=== PATIENT | male | born 1985 ===

== ENCOUNTER 2021-06-15 00:18 | Emergency (ER) | payer BC, SELFPAY ==
--- NOTE | 2021-06-15 01:59 | EDPHYS ---
Physician Documentation [facility] Name: Faisal To Age: 36 yrs Sex: Male : 1985 Arrival Date: 06/15/2021 Time: 00:20 Bed 12 Private MD: Carmen Mallory H ED Physician Zach Neil HPI: 06/15 00:51 This 36 yrs old Male presents to ER via Ambulatory with complaints of Arm Injury. jmm 00:51 The patient or guardian complains of injury, pain. Onset: The symptoms/episode jmm began/occurred acutely, just prior to arrival. Modifying factors: The symptoms are alleviated by nothing. the symptoms are aggravated by nothing. Associated signs and symptoms: Pertinent positives: pain, swelling. The patient has not experienced similar symptoms in the past. Patient states falling and landing on an outstretched arm. Denies head injury. . Historical: - Allergies: 00:44 No Known Allergies; vc1 - Home Meds: 00:44 diazepam 5 mg Oral tab [Active]; Vitamin C Oral orville [Active]; Vitamin D Oral [Active]; vc1 - PMHx: 00:44 Anxiety; vc1 - PSHx: 00:44 Cholecystectomy; vc1 - Immunization history:: Adult Immunizations up to date, Client reports having NOT received the Covid vaccine. - Social history:: Smoking status: Reported history of juuling and/or vaping. Patient uses alcohol, on a daily basis. ROS: 00:51 Constitutional: Negative for fever, chills, and weight loss, Cardiovascular: Negative jmm for chest pain, palpitations, and edema, Respiratory: Negative for shortness of breath, cough, wheezing, and pleuritic chest pain. 00:51 MS/extremity: Positive for injury or acute deformity, pain. 00:51 All other systems are negative. Exam: 00:51 Head/Face: atraumatic. Eyes: EOMI, no conjunctival erythema appreciated ENT: Moist jmm Mucus Membranes Neck: Trachea midline, Supple Chest/axilla: Normal chest wall appearance and motion. Cardiovascular: Regular rate and rhythm. No edema appreciated Respiratory: Normal respirations, no respiratory distress appreciated Abdomen/GI: Non distended, soft Back: Normal ROM 00:51 Skin: General appearance color normal 00:51 Constitutional: The patient appears alert, awake, anxious, smells of alcohol. 00:51 Musculoskeletal/extremity: Ecchymosis noted to the left distal humeral region, swelling appreciated to the left hand, full range of motion is appreciated but it is tender. Full radial pulse appreciated, compartments are soft, neurovascular intact. 00:51 Skin: Appearance: Color: normal in color. 00:51 Neuro: Motor: is normal. 00:51 Psych: Behavior/mood is anxious, aggressive. Vital Signs: 00:39 BP 131 / 82; Pulse 111; Resp 20; Temp 99(TE); Pulse Ox 96% on R/A; Weight 107.05 kg; vc1 Height 5 ft. 8 in. (172.72 cm); Pain 10/10; 00:39 Body Mass Index 35.88 (107.05 kg, 172.72 cm) [facility] MDM: 01:41 Patient medically screened. [facility] 01:58 Data reviewed: vital signs, nurses notes. Counseling: I had a detailed discussion with [facility] the patient and/or guardian regarding: the historical points, exam findings, and any diagnostic results supporting the discharge/admit diagnosis, the need for outpatient follow up, to return to the emergency department if symptoms worsen or persist or if there are any questions or concerns that arise at home. 02:21 ED course: Patient left the ED prior to results of x-ray. Patient refused to stay in [facility] the ED. We were able to splint him in a left posterior splint with sling and I did give him information for orthopedic follow-up. Patient was escorted with the his [id number] was sober.. 06/15 00:50 Order name: XRAY Humerus LEFT [facility] 06/15 00:50 Order name: XRAY Wrist LEFT 2 view [facility] 06/15 01:41 Order name: Posterior Elbow Splint; Complete Time: 02:04 [facility] 06/15 01:41 Order name: Sling; Complete Time: 02:04 [facility] Administered Medications: No medications were administered Disposition: :58 Chart complete. [facility] 02:38 Co-signature as Attending Physician, Zach Neil MD. pkl Disposition Summary: 06/15/21 01:59 Discharge Ordered Location: Home [facility] Condition: Stable [facility] Diagnosis - Contusion of left upper arm [facility] - Contusion of left forearm [facility] Followup: [facility] - With: Feng Bowden MD - When: 2 - 3 days - Reason: Recheck today's complaints, Continuance of care, Re-evaluation by your physician Discharge Instructions: - Discharge Summary Sheet jmm - Contusion jmm - Elbow Sprain jm Forms: - Medication Reconciliation Form jmrenate - Thank You Letter nikita - Antibiotic Education cindym - Prescription Opioid Use nikita Signatures: Dispatcher [employer] EDMS Zach Neil MD MD pkl Mickail, Joel, PA PA jmm Calcote, Vanessa RN RN vc1 Corrections: (The following items were deleted from the chart) 00:46 00:44 Home Meds: Valium 5 mg Oral tab; vc1 vc1 01:37 00:51 Shoulder Left 2 View+RAD.RAD.BRZ ordered. EDME EDMS
--- NOTE | 2021-06-15 01:59 | ER ---
Nurse's Notes [facility] Name: Faisal To Age: 36 yrs Sex: Male : 1985 Arrival Date: 06/15/2021 Time: 00:20 Bed 12 Private MD: Carmen Mallory H Diagnosis: Contusion of left upper arm;Contusion of left forearm Presentation: 06/15 00:39 Chief complaint: Patient states: I cant move my fingers or my left arm, I think I fell vc1 and caught myself. Friend and/or Co-Worker states: He told me he fell and his elbow bent back. Coronavirus screen: Vaccine status: Patient reports being unvaccinated. Ebola Screen: No symptoms or risks identified at this time. Initial Sepsis Screen: Does the patient meet any 2 criteria? No. Patient's initial sepsis screen is negative. Does the patient have a suspected source of infection? No. Patient's initial sepsis screen is negative. Risk Assessment: Do you want to hurt yourself or someone else? Patient reports no desire to harm self or others. Onset of symptoms was June 15, 2021. 00:39 Method Of Arrival: Ambulatory vc1 00:39 Acuity: ROBERT 4 vc1 Triage Assessment: 00:44 General: Appears in no apparent distress. Behavior is calm, cooperative, appropriate vc1 for age. Pain: Complains of pain in left arm Pain does not radiate. Pain currently is 10 out of 10 on a pain scale. Musculoskeletal: Circulation, motion, and sensation intact. Range of motion: limited in left elbow and left wrist Swelling present in left arm. Injury Description: Bruise. Historical: - Allergies: 00:44 No Known Allergies; vc1 - Home Meds: 00:44 diazepam 5 mg Oral tab [Active]; Vitamin C Oral orville [Active]; Vitamin D Oral [Active]; vc1 - PMHx: 00:44 Anxiety; vc1 - PSHx: 00:44 Cholecystectomy; vc1 - Immunization history:: Adult Immunizations up to date, Client reports having NOT received the Covid vaccine. - Social history:: Smoking status: Reported history of juuling and/or vaping. Patient uses alcohol, on a daily basis. Screenin:47 Abuse screen: Denies threats or abuse. Denies injuries from another. Nutritional tw5 screening: No deficits noted. Tuberculosis screening: No symptoms or risk factors identified. 01:47 Fall Risk None identified. vc1 Assessment: 01:47 General: Behavior is agitated, anxious, " I AM JUST STANDING HERE, I AM NOT BOTHERING tw5 ANYONE, BUT I JUST WANT TO GO THE FUCK HOME." patient is observed pacing next his room. It was explained that he needed to stay in his room to protect the privacy of other patients. "YOU ARE TRYING TO LOCK ME IN HERE, WHY YOU TRYING TO LOCK ME IN HERE." It was further explained to the patient that there are no locks on the door and he is welcome to leave at any point, but nursing staff would like to splint the arm before he leaves if he would allow. General: Behavior is restless, uncooperative. Neuro:. Musculoskeletal: Swelling present in left bicep and left antecubital area. 01:56 General: Smells of alcohol. tw5 Vital Signs: 00:39 BP 131 / 82; Pulse 111; Resp 20; Temp 99(TE); Pulse Ox 96% on R/A; Weight 107.05 kg; vc1 Height 5 ft. 8 in. (172.72 cm); Pain 10/10; 00:39 Body Mass Index 35.88 (107.05 kg, 172.72 cm) vc1 ED Course: 00:20 Patient arrived in ED. es 00:21 Carmen Mallory DO is Private Physician. es 00:44 Triage completed. vc1 00:47 Arm band placed on right wrist. vc1 01:40 XRAY Humerus LEFT In Process Unspecified. EDMS 01:40 Jabier Montes PA is PHCP. jmm 01:40 Zach Neil MD is Attending Physician. jmm 01:40 XRAY Wrist LEFT 2 view In Process Unspecified. EDMS 01:47 Appears agitated. Appears angry. Pt. is pacing. tw5 01:56 Patient has correct armband on for positive identification. tw5 01:58 Feng Bowden MD is Referral Physician. jmm 02:04 No provider procedures requiring assistance completed. Patient did not have IV access vc1 during this emergency room visit. Orthoglass splint: posterior long arm splint applied to the Sling applied to left arm. Administered Medications: No medications were administered Outcome: 01:59 Discharge ordered by . nikita 02:04 Discharged to home ambulatory, with family. vc1 02:04 Condition: good 02:04 Discharge instructions given to patient, family, Instructed on discharge instructions, follow up and referral plans. sling usage 02:05 Patient left the ED. vc1 Signatures: Dispatcher [employer] EDJabier Rivera PA PA jmm Salyer, Edna es Wood, Tiffany tw5 Dilia Markham RN RN vc1 Corrections: (The following items were deleted from the chart) 00:46 00:44 Home Meds: Valium 5 mg Oral tab; vc1 vc1
[2021-06-15 02:18] VITALS: BP 131/82; TEMP 99; O2SAT 96
--- NOTE | 2021-06-15 16:29 | RAD REPORT ---
EXAM DESCRIPTION: XR Left Humerus, 2 Views CLINICAL HISTORY: Unable to move;Swelling TECHNIQUE: Frontal and lateral views of the left humerus. COMPARISON: No relevant prior studies available. FINDINGS: Bones/joints: No acute fracture. Mild degenerative changes at the acromioclavicular lyndsay culation. No dislocation. Soft tissues: Unremarkable. * A single impression for all exams can be found at the end of this report EXAM DESCRIPTION: XR Left Wrist, 2 Views CLINICAL HISTORY: Unable to move;Swelling TECHNIQUE: Frontal and lateral views of the left wrist. COMPARISON: No relevant prior studies available. FINDINGS: Bones/joints: Unremarkable. No acute fracture. No dislocation. Soft tissues: Mild soft tissue swelling along the radial aspect of the forearm and wrist. No radi opaque foreign body. * A single impression for all exams can be found at the end of this report IMPRESSION: XR Left Humerus, 2 Views: No acute osseous abnormality. XR Left Wrist, 2 Views: Mild soft tissue swelling along the radial aspect of the forearm and wrist. No acute osseous abnorm ality. Electronically signed by: Pk Spence MD 06/15/2021 2:08 AM COAT REPAIR INSPECTOR Due to temporary technical issues with the PACS/Fluency reporting system, reports are being signed by the in house radiologists without review as a courtesy to insure prompt reporting. The interpreting radiologist is fully responsible for the content of the report.
--- NOTE | 2021-06-15 16:31 | RAD REPORT ---
EXAM DESCRIPTION: XR Left Humerus, 2 Views CLINICAL HISTORY: Unable to move;Swelling TECHNIQUE: Frontal and lateral views of the left humerus. COMPARISON: No relevant prior studies available. FINDINGS: Bones/joints: No acute fracture. Mild degenerative changes at the acromioclavicular lyndsay culation. No dislocation. Soft tissues: Unremarkable. * A single impression for all exams can be found at the end of this report EXAM DESCRIPTION: XR Left Wrist, 2 Views CLINICAL HISTORY: Unable to move;Swelling TECHNIQUE: Frontal and lateral views of the left wrist. COMPARISON: No relevant prior studies available. FINDINGS: Bones/joints: Unremarkable. No acute fracture. No dislocation. Soft tissues: Mild soft tissue swelling along the radial aspect of the forearm and wrist. No radi opaque foreign body. * A single impression for all exams can be found at the end of this report IMPRESSION: XR Left Humerus, 2 Views: No acute osseous abnormality. XR Left Wrist, 2 Views: Mild soft tissue swelling along the radial aspect of the forearm and wrist. No acute osseous abnorm ality. Electronically signed by: Pk Spence MD 06/15/2021 2:08 AM STAKING PRESS OPERATOR Due to temporary technical issues with the PACS/Fluency reporting system, reports are being signed by the in house radiologists without review as a courtesy to insure prompt reporting. The interpreting radiologist is fully responsible for the content of the report.
== END 2021-06-15 02:05 | disposition home or self-care (01) ==
LOC: ER 00:18
DX: S50.12XA Contusion of left forearm, initial encounter (principal); S40.022A Contusion of left upper arm, initial encounter; W18.39XA Other fall on same level, initial encounter; F41.9 Anxiety disorder, unspecified
CPT/HCPCS: 99283